=== PATIENT | male | born 1980 | race Caucasian/White ===

== ENCOUNTER 2022-05-21 02:51 | Emergency (ER) | payer OTHER ==
[2022-05-21 04:31] LABS: HEMOGLOBIN 14.7 gm/dl (14.0-17.5); RED BLOOD COUNT 4.58 M/UL (4.20-5.50); WHITE BLOOD COUNT 9.9 K/UL (4.5-11.0)
[2022-05-21 04:53] LABS: BUN/CREATININE RATIO 17 (0-10)
[2022-05-21] MEDS ORDERED: MECLIZINE HCL25 MG PO (05:33)
== END 2022-05-21 05:52 | disposition home or self-care (01) ==
LOC: ER1 02:51
PROVIDERS: Physician Assistant
DX: U07.1 COVID-19 (principal); I10 Essential (primary) hypertension; F17.220 Nicotine dependence, chewing tobacco, uncomplicated; Z79.899 Other long term (current) drug therapy
CPT/HCPCS: 71045; 80053; 83605; 85025; 87040; 99283; U0002